=== PATIENT | male | born 1960 | race Caucasian/White ===

== ENCOUNTER 2021-04-01 13:30 | Outpatient (AMB) | payer MEDICARE, BC, SELFPAY ==
--- NOTE | 2021-04-01 13:37 | U.OPVIS1 ---
Intake Vital Signs 04/01/21 13:38 Height 1.8 m Weight 89.414 kg BMI 27.5 BP 132/84 H Blood Pressure Location Left Upper Arm Position Sitting Pulse 87 Pulse Source Monitor Temp 97.7 F Temp Source Temporal Artery Scan Intake Visit Reasons: Uro Uroflow and Bladder Scan Supervisor Covering And Lining Required: No Is patient in pain?: No Allergy Allergies clarithromycin [From Biaxin] Allergy (Verified 04/01/21 13:38) Rash Office Procedures Uro Bladder Scan and Uro Flow My Supervising Practitioner for this visit is:: Izzy Gr Bladder Scan and Uro Flow Completed?: Yes Diagnosis: BPH WITH LUTS N40.1 SLOW STREAM R39.12 Uro Level of Care Nursing/Assessment/Reassessment Patient Status: Established Patient Nursing Assessment/Reassessment: Update [facility] data in EMR, Vital Signs and Medication Reconciliation Coordination of Care: Comp Pt/Fam Ed for care Established Patient Point Assignment: 50 Procedure IM Injection: No Transrectal Ultrasound: No
[2021-04-01 13:38] VITALS: BP 132/84; PULSE 87; TEMP 36.5; BMI 27.5
== END 2021-04-01 14:41 | disposition home or self-care (01) ==
LOC: HODURO 13:30
PROVIDERS: PCP Internal Medicine; Visit Provider Urology